=== PATIENT | female | born 1960 | race Caucasian/White ===

== ENCOUNTER 2017-06-03 11:32 | Emergency (ER) | payer MEDICARE, MEDICAID ==
[~2017-06-03] VITALS: Wt 77.1 kg
[~2017-06-03 11:32] MED LIST: AUGMENTIN 875 M1 TAB PO; BACTROBAN OINT22 GM PO; CLARITIN10 MG PO; DARVOCET N 1001 TAB PO; EPI-PEN1 MG/ML MR; REQUIP1 TAB PO; VICODIN 5/500 505 MG PO
[2017-06-03 11:51] VITALS: BP 127/76
== END 2017-06-03 13:30 | disposition home or self-care (01) ==
LOC: ED 11:32
DX: S99.821A Other specified injuries of right foot, initial encounter (principal); F17.200 Nicotine dependence, unspecified, uncomplicated; W22.8XXA Striking against or struck by other objects, initial encounter; Y93.89 Activity, other specified; Y92.89 Other specified places as the place of occurrence of the external cause; Y99.8 Other external cause status

== ENCOUNTER → 2020-10-25 | Outpatient (CLI) | payer OTHER | END | disposition home or self-care (01) | LOC: LAB 13:23 | PROVIDERS: ATTEND Nurse Practitioner Adult Health | DX: D69.6 Thrombocytopenia, unspecified (principal) ==

== ENCOUNTER 2020-12-21 15:31 | Emergency (ER) | payer OTHER | END 2020-12-21 17:35 | disposition left against medical advice (07) | LOC: ED 15:31 | DX: R10.9 Unspecified abdominal pain (principal); Z53.21 Procedure and treatment not carried out due to patient leaving prior to being seen by health care provider ==

== ENCOUNTER 2021-06-01 23:15 | Emergency (ER) | payer OTHER ==
[~2021-06-01] VITALS: Ht 152.4 cm; Wt 66.2 kg
[2021-06-01 23:36] VITALS: BP 145/71
[2021-06-01] MEDS ORDERED: PROMACTA75 MG PO (23:37)
[2021-06-01] MEDS ORDERED: MS CONTIN15 MG PO (23:38)
[2021-06-01] MEDS ORDERED: ZANAFLEX4 M1 PO (23:38)
[2021-06-01] MEDS ORDERED: NEURONTIN800 MG PO (23:39)
== END 2021-06-02 02:58 | disposition home or self-care (01) ==
LOC: ED 23:15
DX: S86.911A Strain of unspecified muscle(s) and tendon(s) at lower leg level, right leg, initial encounter (principal); Z88.0 Allergy status to penicillin; Z88.6 Allergy status to analgesic agent; Z88.1 Allergy status to other antibiotic agents; Z88.8 Allergy status to other drugs, medicaments and biological substances; Z79.899 Other long term (current) drug therapy; W18.39XA Other fall on same level, initial encounter; Y93.89 Activity, other specified; Y92.89 Other specified places as the place of occurrence of the external cause; Y99.8 Other external cause status